=== PATIENT | female | born 1995 | race Caucasian/White ===

== ENCOUNTER 2019-04-28 20:47 | Inpatient (IN) | payer OTHER ==
[~2019-04-28] VITALS: Ht 162.6 cm; Wt 78.0 kg
[2019-04-28 20:48] VITALS: BP 137/80
[2019-04-28 21:21] LABS: BASOPHILS 0.4 % (0.0-2.0); EOSINOPHILS 0.8 % (0.0-3.0); HEMATOCRIT 39.4 % (37.0-47.0); LYMPHOCYTES 28.2 % (24.0-44.0); MCH 29.9 pg (26.0-34.0); MCV 90.6 fL (80.0-100.0); MONOCYTES 8.6 % (1.0-8.0); PLATELET COUNT 273 thou/uL (150-400); RBC 4.35 mil/uL (4.20-5.00)
[2019-04-28 21:21] LABS: URINE BILIRUBIN 1+ (Negative); URINE BLOOD NEGATIVE (Negative); URINE CLARITY CLEAR; URINE COLOR YELLOW; URINE GLUCOSE-RANDOM* NEGATIVE (Negative); URINE KETONES 2+ (Negative); URINE NITRITE-REFLEX NEGATIVE (Negative); URINE PROTEIN (DIPSTICK) NEGATIVE (Negative); URINE SPECIFIC GRAVITY 1.025 (1.005-1.035)
[2019-04-28 21:23] LABS: ICTOTEST (BILI CONFIRMATORY) Positive (Negative); URINE LEUKOCYTES-REFLEX 1+ (Negative)
[2019-04-28 21:26] LABS: CALCIUM 9.6 mg/dL (8.5-10.1); CREATININE 0.8 mg/dL (0.6-1.0); POTASSIUM 3.8 mmol/L (3.5-5.1)
[2019-04-28 21:32] LABS: ALBUMIN 4.3 g/dL (3.4-5.0); TOTAL BILIRUBIN 3.3 mg/dL (<0.1-1.0); TOTAL PROTEIN 7.8 g/dL (6.4-8.2)
[2019-04-28 21:35] LABS: BACTERIA-REFLEX None Seen /HPF (None Seen); CASTS None Seen /LPF (None Seen); CRYSTALS None Seen /LPF (None Seen); MUCUS None Seen strn/LPF (None Seen); SQUAMOUS 0-3 Few /LPF (0-3); URINE RBC None Seen /HPF (0-2); URINE WBC-REFLEX None Seen /HPF (0-5)
[2019-04-28 23:50] VITALS: BP 137/74
[2019-04-29 00:49] VITALS: BP 120/56
[2019-04-29 01:20] VITALS: BP 119/54
--- NOTE | 2019-04-29 03:18 | NUR ---
PT ADMITTED INTO THE UNIT AT 0110 WITH C/O OF UPPER ABD PAIN AFTER EATING AND WITH NAUSEA AND VOMITING X4DAYS.PT IS A/O X4.PT IS UP AD JOANNA.PAIN DENIED PAIN DURING ADMISSION AND N/V.(PT HAD ZOFRAN AT ER).PT IS NPO AND ALL ADMISSION CONSENTS SIGNS.IV ACCESS ON LT HAND WITH 20G WITH NS AT 125CC/HR.WILL CONTINUE TO MONITOR POC
[2019-04-29 04:20] VITALS: BP 123/64
[2019-04-29 07:42] VITALS: BP 117/53
--- NOTE | 2019-04-29 11:22 | NUR ---
ASSUMED CARE OF THE PT AT 0700. PT HAS NO C/O PAIN. N/V ARE BEING CONTROLLED BY MEDICATION, SEE EMAR. PT HAD QUESTIONS ABOUT POSSIBLE SX, EXPLAINED THAT DOCTORS WOULD BE IN TO SPEAK WITH HER TODAY. R HAND IV INTACT AND DRY. PT IS NOT A FALL RISK. BED IN LOWEST POSITION AND CALL LIGHT IS WITHIN REACH. PT IS SCHEDULED TO HAVE A MRCP & ERCP DONE TOMMOROW AND WILL BE NPO AFTER MIDNIGHT. WILL CONTINUE TO MONITOR THE PT.
[2019-04-29 16:23] VITALS: BP 120/52
[2019-04-29 19:28] VITALS: BP 118/60
--- NOTE | 2019-04-29 23:39 | NUR ---
PT IS ALERT AND ORIENTED. PLEASANT, UP AD JOANNA. CONTINUES ON IV ABTS AND FLUIDS.AFEBRILE. NPO AFTER MIDNOC. TORADOL GIVEN FOR MILD ABDOMINAL PAIN.DENIES NAUSEA. NO FURTHER COMPLAINS OR CONCERNS AT THIS TIME.
[2019-04-30 05:47] LABS: ALBUMIN 3.7 g/dL (3.4-5.0); CALCIUM 8.7 mg/dL (8.5-10.1); CREATININE 0.8 mg/dL (0.6-1.0); POTASSIUM 3.6 mmol/L (3.5-5.1); TOTAL BILIRUBIN 2.8 mg/dL (<0.1-1.0); TOTAL PROTEIN 6.8 g/dL (6.4-8.2)
[2019-04-30 07:45] VITALS: BP 113/43
--- NOTE | 2019-04-30 12:34 | NUR ---
ASSUMED CARE OF THE PT AGAIN AT 1100. PT RETURNED FROM MRI AND IT SHOWED GALLSTONES. PT IS TO HAVE A PROCEDURE THIS AFTERNOON TO REMOVE GALL STONE. PT IS NPO AND NO MEDICATIONS WERE GIVEN. NO C/O PAIN, BUT PT QUESTIONED WHETHER SHE WOULD BE ABLE TO BREATFEED AFTER HER SX, ADVISED TO SPEAK WITH PRE OP BEFORE SIGNING CONSENTS. IV IS DRY AND INTACT. PT IS NOT A FALL RISK. LUNG SOUNDS ARE CLEAR AND VITALS ARE STABLE. RADIAL PULSES ARE STRONG AND CALL LIGHT IS WITHIN REACH. WILL CONTINUE TO MONITOR THE PT.
[2019-04-30 16:00] VITALS: BP 123/53
[2019-04-30 17:16] LABS: HEMATOCRIT 39.2 % (37.0-47.0); HEMOGLOBIN 12.5 gm/dL (12.0-15.0); MCH 30.3 pg (26.0-34.0); MCV 94.6 fL (80.0-100.0); RBC 4.14 mil/uL (4.20-5.00); RDW 14.6 % (10.5-14.5); WBC 6.3 thou/uL (4.0-11.0)
[2019-04-30 17:21] LABS: DIRECT BILIRUBIN 2.2 mg/dL (<0.1-0.2)
[2019-04-30 19:35] VITALS: BP 118/56
--- NOTE | 2019-05-01 01:15 | NUR ---
ASSESSMENT COMPLETED. PT OBSERVED VISITING WITH KIDS AND SPOUSE AT [facility]. PT IN A GOOD MOOD. SHE IS VERY CONCERNED ABOUT HOW LONG SHE HAS TO SAY IN THE HOSPITAL-EXPRESSED HOW FRUSTRATED SHE WAS EARLIER IN THE EVENING. LOOKING FORWARD TO THE PLAN TOMORROW. NPO AFTER MIDNOC FOR ERCP AND POSSIBLE LAP SHY.AFEBRILE. CONTINUES ON IV ABTS AND FLUIDS.SHE IS UP AD JOANNA. TOOK A SHOWER. CALLS WITH NEEDS. WILL CONTINUE WITH POC TILL EOS.
[2019-05-01 04:50] VITALS: BP 110/44
[2019-05-01 06:54] LABS: ALBUMIN 4.2 g/dL (3.4-5.0); CALCIUM 9.6 mg/dL (8.5-10.1); CREATININE 0.8 mg/dL (0.6-1.0); POTASSIUM 3.9 mmol/L (3.5-5.1); TOTAL BILIRUBIN 1.6 mg/dL (<0.1-1.0); TOTAL PROTEIN 7.9 g/dL (6.4-8.2)
[2019-05-01 09:12] VITALS: BP 141/53
--- NOTE | 2019-05-01 10:48 | NUR ---
Assumed care of pt at 0700. Denies pain. IVF and IV antibiotics infusing. Up ad adri. Pt will have ERCP and possible cholecystectomy today. Picked up by transporters approx 0930.
--- NOTE | 2019-05-01 12:34 | NUR ---
ASSESSMENT-PT LIVES AT HOME WITH HER AND 2 CHILDREN 4 Y/O AND A BABY. PT WANTS TO GET BACK HOME TAMAR BECAUSE SHE IS . SPOUSE ABLE TO ASSIST PT NEEDED. NO DC NEEDS ANTICIPATED AT THIS TIME. FOLLOWING TO ASSIST WITH DC PLANNING.
[2019-05-01 15:15] VITALS: BP 140/67
[2019-05-01 18:16] VITALS: BP 137/71
[2019-05-01 20:05] VITALS: BP 137/67
--- NOTE | 2019-05-02 03:38 | NUR ---
PT C/O PAIN ON HER ABD,MANAGED WITH MED.PT ALSO C/O NAUSEA,MANAGED WITH MED.PT UP ADLIB IN ROOM WITH A STEADY GAIT.PT HAS 4 LAP SITES C/D/I.PT RESTING ON HER BED AT THIS TIME.CALL LIGHT WITHIN REACH.
[2019-05-02 04:11] VITALS: BP 143/74
[2019-05-02 06:19] LABS: HEMATOCRIT 41.7 % (37.0-47.0); HEMOGLOBIN 13.6 gm/dL (12.0-15.0); MCH 30.3 pg (26.0-34.0); MCHC 32.7 g/dL (28.0-37.0); MCV 92.7 fL (80.0-100.0); RBC 4.5 mil/uL (4.20-5.00); RDW 13.5 % (10.5-14.5); WBC 14.4 thou/uL (4.0-11.0)
[2019-05-02 06:35] LABS: ALBUMIN 4.3 g/dL (3.4-5.0); CALCIUM 9.3 mg/dL (8.5-10.1); CREATININE 0.7 mg/dL (0.6-1.0); DIRECT BILIRUBIN 0.4 mg/dL (<0.1-0.2); POTASSIUM 3.8 mmol/L (3.5-5.1); TOTAL BILIRUBIN 1.1 mg/dL (<0.1-1.0); TOTAL PROTEIN 8.1 g/dL (6.4-8.2)
[2019-05-02 09:34] VITALS: BP 149/67
[2019-05-02] MEDS ORDERED: REGLAN 10 MG TA10 MG PO (15:11)
[2019-05-02] MEDS ORDERED: COLACE100 MG PO (15:11)
[2019-05-02] MEDS ORDERED: MIRALAX17 GM PO (15:11)
[2019-05-02 16:12] VITALS: BP 149/67
--- NOTE | 2019-05-02 16:22 | NUR ---
ASSUMED CARE OF THE PT AT 0700. PT C/O PAIN IN THE AM, PAIN CONTROLLED BY PAIN MEDICATION, SEE EMAR. 4 LAP SITES ON THE ABDOMEN ARE DRY AND INTACT. PT MOVES SLOW DUE TO SX. PT WANTS TO DISCHARGE HOME, CONTACTED DOCTOR AND PT WILL BE DISCHARGING. EXPLAINED PAIN MEDICATION AND BREAST FEEDING TO PT. PT TOLERATED DIET WELL. NO VOMITING. WILL CONTINUE TO MONITOR THE PT UNTIL DISCHARGE.
--- NOTE | 2019-05-02 23:13 | P ---
[facility] [place] [address] PROCEDURE REPORT Name: YOSELIN PRATHER Room #: 439-P [facility] IN M.R.#: [id number] Admission: 04/29/19 Attend Phys: Cabrera Strauss MD Discharge: 05/02/19 Date of : 89 Report #: [id number] THIS REPORT FOR: //name// CC: Giorgio Walters MD INPATIENT ERCP REPORT BRIEF HISTORY: The patient is a 23-year-old woman who was admitted to [facility] with increased abdominal pain. She was found to have evidence of choledocholithiasis and choledocholithiasis. PREOPERATIVE DIAGNOSES: Choledocholithiasis and cholelithiasis. POSTOPERATIVE DIAGNOSIS: ____. MEDICATIONS: Intubation, general anesthesia. SPECIMEN: Thirteen stones removed from the common bile duct and left in duodenum. ESTIMATED BLOOD LOSS: None. PROCEDURE: ERCP with endoscopic sphincterotomy and stone removal. FINDINGS: Prior to intubation and general anesthesia, the procedure of ERCP and potential extraction of stones was discussed with the patient as well as potential risks and its complications. She indicates she understands and desires to proceed. DESCRIPTION OF PROCEDURE: The patient was induced with general anesthesia, intubated, and placed in the prone position. Subsequently, the Olympus video side-viewing endoscope was inserted in the oropharynx, passed in the esophagus across the GE junction into the stomach and across the stomach and across the pylorus into the duodenum. The papilla was identified. The papilla appeared to be normal. There was yellow bile coming from the papilla. We then cannulated and on the first several attempts with cannulation, the pancreatic duct was entered. We used a guidewire technique and no contrast was injected into the pancreatic duct. After repositioning, finally, we obtained deep cannulation of the common bile duct. Injection of contrast revealed filling of the common bile duct as well as the central intrahepatics. Multiple stones were seen in the range of about 5-6 mm. A guidewire was inserted deeply into the intrahepatic ducts. The sphincterotome was withdrawn back across the sphincter and a sphincterotomy was completed. There was no bleeding. A good sphincterotomy was completed and we could see into the bile duct. We then used a 3-stage balloon [facility] [address] [place] [address] PROCEDURE REPORT Name: YAMILKAYOSELIN Room #: 439-P [facility] IN [facility].#: [id number] Admission: 04/29/19 Attend Phys: Cabrera Strauss MD Discharge: 05/02/19 Date of : 89 Report #: [id number] catheter up to 12 mm and using several balloon sizes, we extracted the stones from the common bile duct. The stones were yellow faceted stones. All were similar. As we counted, 13 stones were extracted from the common bile duct. We then refilled the biliary tree and used the balloon tamponade and made several additional passes with the balloon catheter. No additional stones were retrieved. No additional filling defects were noted. We then advanced the balloon proximally into the common hepatic duct and with the balloon filled, slowly withdrew the balloon and could not identify any additional filling defects. It was felt the common duct was cleared. If there is a very small stone or debris, the sphincterotomy is large enough to allow spontaneous passage. The scope was withdrawn and the patient tolerated the procedure well. DISPOSITION: As previously planned, if things went well with ERCP, she would then be placed on the table for laparoscopic cholecystectomy with one anesthesia. Discussed with Dr. Narvaez. Would be alert to the possibility of post-ERCP pancreatitis over the next several hours, but the procedure went well and I do not anticipate any problems at this point in time. <ELECTRONICALLY SIGNED> By: Sebastien Conley MD 05/02/19 2313 1254 2352 Sebastine Conley MD /nt
--- NOTE | 2019-05-04 09:29 | HC ---
[facility] [place] [address] CONSULTATION Name: YOSELIN PRATHER Room #: 439-P [facility] IN M.R.#: [id number] Admission: 04/29/19 Attend Phys: Cabrera Strauss MD Discharge: 05/02/19 Date of : 89 Report #: [id number] THIS REPORT FOR: //name// CC: Giorgio Walters DATE OF SERVICE: 04/29/2019 HISTORY OF PRESENT ILLNESS: The patient is a 23-year-old female with intermittent abdominal pain. The pain typically is in the midepigastrium, but also radiates into her chest and her shoulders. She also had associated nausea and vomiting. She denies any fevers. She does report some chills at times. She has had similar type of pain in the past, but this has been much worse over the last 3-4 days. She is now 8 months and at this time. She denies any chest pain currently or shortness of breath. Her abdominal pain has improved since being in the hospital. She is currently n.p.o. at this time. She was noted to have elevated liver function test on admission and underwent an ultrasound of her abdomen last night, which shows extensive small gallstones within the gallbladder, positive Carballo sign. Her common bile duct is dilated at 10 mm. Intrahepatic ducts are normal, a combination suggesting a possible distal common bile duct stone or obstruction. No previous history of liver disease. The patient rarely consumes alcohol. PAST MEDICAL HISTORY: Unremarkable. ALLERGIES: No known drug allergies. FAMILY HISTORY: Negative for colon cancer or liver disease. SOCIAL HISTORY: She denies any tobacco use. She reports rare alcohol use. REVIEW OF SYSTEMS: As per HPI. PHYSICAL EXAMINATION: VITAL SIGNS: Temperature is 98.2, pulse 109, blood pressure 117/53, respiratory rate is 16. GENERAL: She is alert and oriented x 3, in no acute distress. HEENT: Sclerae nonicteric. Oropharynx clear. NECK: Supple, without lymphadenopathy. CARDIOVASCULAR: Regular rhythm, mildly tachycardic. CHEST: Clear to auscultation bilaterally. ABDOMEN: Soft. She is mildly tender to palpation in the right upper quadrant, nondistended, normoactive bowel sounds. EXTREMITIES: No cyanosis, clubbing, or edema. [address] [address] CONSULTATION Name: YOSELIN PRATHER Room #: 439-P [facility] IN M.R.#: [id number] Admission: 04/29/19 Attend Phys: Cabrera Strauss MD Discharge: 05/02/19 Date of : 89 Report #: [id number] LABORATORY DATA: Sodium 137, potassium 3.8, chloride 102, bicarbonate 21, BUN 10, creatinine 0.8, glucose 109. AST 245, lipase 125, total bilirubin 3.3, calcium 9.6, alkaline phosphatase 338, ALT is 875, total protein 7.8, albumin 4.3. WBC is 8.0, hemoglobin 13.0, platelet count is 273. HCG is negative. ASSESSMENT AND PLAN: 1. Elevated liver function test with abdominal pain. Ultrasound showing cholelithiasis, also with a dilated common bile duct and elevated total bilirubin, suggesting possible common bile duct stone. I agree with IV antibiotics, which has been started. She is currently afebrile and her white count is normal. I would recommend proceeding with an MRCP in the morning. If there is evidence of a common bile duct stone, then likely proceed with ERCP tomorrow afternoon. Dr. Narvaez with General Surgery has been consulted. I discussed the patient with Dr. Narvaez and he agrees with the plan, also likely a laparoscopic cholecystectomy in the near future due to multiple stones within the gallbladder. We will advance her diet today, n.p.o. after midnight. Thank you for allowing me to participate in her care. <ELECTRONICALLY SIGNED> By: Bj Eason MD 05/04/19 0929 1103 1400 Bj Eason MD /nt
--- NOTE | 2019-05-04 16:06 | PATH ---
[facility] [address] [place] [address] PATHOLOGY RPT PROCEDURE Name: YOSELIN PRATHER Room #: 439-P [facility] IN M.R.#: [id number] Admission: 04/29/19 Date of : 89 Discharge: 05/02/19 Report #: [id number] Path Case #: [id number] [facility] Accession Number: [id number] . 01 Material submitted: . gallbladder - GALLBLADDER . 01 Clinical history: . Choledocholithiasis . 02 Diagnosis: Gallbladder, cholecystectomy: - Chronic cholecystitis, mild. - Cholelithiasis. . (SKM:mml; 05/04/2019) [facility] 05/04/2019 1320 Local . 02 Electronically signed: . Patrick Romero MD, Pathologist NPI- [id number] . 01 Gross description: . The specimen is received in formalin, labeled "freddy Zepeda". Received is an intact gallbladder measuring 10.2 x 3.2 x 3.2 cm in greatest dimensions displaying a blue-baltazar serosal surface. Opening the specimen reveals a velvety, bile-stained mucosa with a gallbladder wall thickness of 0.1 cm. Calculi are present displaying a yellow-guzman in multifaceted appearance, and no masses or lesions are noted grossly. Singing Messenger sections, to include the proximal margin, are submitted in cassette A1. (CAA; 05/03/2019) QAC/QAC 05/03/2019 0951 Local . 02 Pathologist provided ICD-10: K80.10 . 02 CPT . 393504 Specimen Comment: A courtesy copy of this report has been sent to [phone], [phone] Specimen Comment: [phone], Specimen Comment: Report sent to ,DR MADRID / DR GALLEGOS Performed at: [address] [facility], [place] [id number] MD Shad Pucktet MD Phone: [phone] [address] [address] PATHOLOGY RPT PROCEDURE Name: LOCO PRATHERENZIE Room #: 439-P [facility] IN M.R.#: [id number] Admission: 04/29/19 Date of : 89 Discharge: 05/02/19 Report #: [id number] Path Case #: [id number] Performed at: [address] [facility] [place] [address], [place], [place] [id number] MD Kandi Dangelo MD Phone: [phone]
== END 2019-05-02 17:27 | disposition home or self-care (01) | DRG 417 ==
LOC: ER 20:47 → EROBS 04-29 00:35 → 4S 04-29 00:35
PROVIDERS: Emergency Medicine; Hospitalist; Nurse Practitioner; Specialist; ADMIT Internal Medicine
PROC: 0FC98ZZ Extirpation of Matter from Common Bile Duct, Via Natural or Artificial Opening Endoscopic (ICD-10-PCS; principal; 2019-04-29)
PROC: 0FT44ZZ Resection of Gallbladder, Percutaneous Endoscopic Approach (ICD-10-PCS; 2019-05-01)
DX: K80.71 Calculus of gallbladder and bile duct without cholecystitis with obstruction (principal); K85.90 Acute pancreatitis without necrosis or infection, unspecified; K83.09 Other cholangitis; E80.6 Other disorders of bilirubin metabolism; R74.0 Nonspecific elevation of levels of transaminase and lactic acid dehydrogenase [LDH]; Z79.899 Other long term (current) drug therapy
CPT/HCPCS: 10195; 50010; 50101; 50249; 50411; 50555; 50558; 51297; 51489; 52265; 52266; 53307; 53310; 53312; 54022; 54118; 55245; 56462; 56525; 56526; 62110; 62900; 70005